=== PATIENT | male | born 1985 | race Caucasian/White ===

== ENCOUNTER 2020-02-22 20:19 | Emergency (ER) | payer MEDICAID ==
[~2020-02-22] VITALS: Ht 193 cm; Wt 72.6 kg
[2020-02-22] MEDS ORDERED: CYMBALTA60 MG PO (20:25)
[2020-02-22] MEDS ORDERED: BUSPIRONE HCL10 MG PO (20:25)
[2020-02-22] MEDS ORDERED: TEGRETOL XR200 MG PO (20:25)
[2020-02-22] MEDS ORDERED: CENTANY30 GM TOP (21:02)
[2020-02-22] MEDS ORDERED: KEFLEX500 M1 PO (21:03)
[2020-02-22 21:33] VITALS: BP 124/72
== END 2020-02-22 21:34 | disposition home or self-care (01) ==
LOC: M.ERS 20:19
DX: T69.022A Immersion foot, left foot, initial encounter (principal); T69.021A Immersion foot, right foot, initial encounter; Z88.1 Allergy status to other antibiotic agents; Z88.8 Allergy status to other drugs, medicaments and biological substances; W93.8XXA Exposure to other excessive cold of man-made origin, initial encounter